=== PATIENT | female | born 1990 | race Caucasian/White ===

== ENCOUNTER 2021-03-30 03:37 | Emergency (ER) | payer OTHER ==
[~2021-03-30] VITALS: Ht 154.9 cm; Wt 57.7 kg
[2021-03-30 03:56] VITALS: BP 114/70
[2021-03-30 04:09] LABS: BILIRUBIN,URINE NEGATIVE (NEG); CLARITY,URINE CLEAR; COLOR,URINE YELLOW; NITRITE,URINE NEGATIVE (NEG); PH,URINE 5.5 (<5.0-8.0); PROTEIN,URINE NEGATIVE (NEG-TRACE); UROBILINOGEN,URINE 0.2 mg/dL (0.2 mg/dL)
[2021-03-30] MEDS ORDERED: IV NORMAL SALINE 1000ML BAG 1,000 ML IV ONE (04:15)
[2021-03-30] MEDS ORDERED: KETOROLAC 15 MG/ML VIAL. IVP ONE (04:15)
[2021-03-30] MEDS ORDERED: METOCLOPRAMIDE HCL 10 MG/2 ML VIAL. IVP ONE (04:15)
--- NOTE | 2021-03-30 04:20 | PHYS DOC ---
Past Medical History Past Medical History: Anxiety Additional Past Medical Histor: SEASONAL ALLERGIES Past Surgical History: No Surgical History Smoking Status: Never Smoker Alcohol Use: Occasionally Drug Use: Marijuana General Adult EDM: Chief Complaint: FLANK PAIN HPI: HPI: Patient is a 30-year-old female presents with report of intermittent flank pain bilaterally with associated nausea that has been ongoing for the past month. Patient reports today became worse primarily to the right flank. Patient reports pain waxes and wanes in intensity. Patient also reports upon urination she noticed her urine was "foul-smelling ". Patient reports had been seen previously by her PCP who obtained blood work as well as an ultrasound of her gallbladder and kidney. Patient reports the ultrasound did not show any significant abnormality with exception for a cyst on her kidney. Patient denies . Reports she is about to start her menstrual cycle. Patient also reports recent fever and chills this evening. Patient does report taking ibuprofen at 1930 last night. Review of Systems: Review of Systems: Constitutional: Reports subjective fever and chills Eyes: Denies redness or eye pain HENT: Denies nasal congestion or sore throat Respiratory: Denies cough or shortness of breath Cardiovascular: Denies chest pain or palpitations GI: Reports abdominal pain and nausea; denies vomiting or diarrhea : Denies dysuria or hematuria Musculoskeletal: Denies joint pain; reports flank pain Integument: Denies rash or skin lesions Neurologic: Denies headache, focal weakness or sensory changes Complete systems were reviewed and found to be within normal limits, except as documented in this note. Heart Score: C/O Chest Pain: N/A Current Medications: Current Medications Medications (Trade) Dose Ordered Sig/Arturo Start Time Stop Time Status Last Admin Dose Admin Ketorolac Tromethamine (Toradol 15mg Vial) 15 mg 1X ONCE 03/30/21 04:15 03/30/21 04:16 Metoclopramide HCl (Reglan Vial) 10 mg 1X ONCE 03/30/21 04:15 03/30/21 04:16 Sodium Chloride 1,000 ml @ 1,000 mls/hr 1X ONCE 03/30/21 04:15 03/30/21 05:14 Allergies: Allergies: Allergies Coded Allergies Type Severity Reaction Last Updated Verified No Known Drug Allergies 03/30/21 No Physical Exam: PE: Constitutional: Well developed, well nourished, no acute distress, non-toxic appearance HENT: Normocephalic, atraumatic Eyes: Conjunctiva normal, no discharge Neck: Normal range of motion, supple Lungs & Thorax: No respiratory distress, equal chest rise and fall Abdomen: Soft, no tenderness, no guarding/rebound tenderness/distention Skin: Warm, dry, no erythema, no rash Back: No tenderness, right CVA tenderness Extremities: No tenderness, ROM intact, no edema Neurologic: Alert and oriented X 3, no focal deficits noted Psychologic: Affect normal, judgment normal Current Patient Data: Labs: Laboratory Tests Test 03/30/21 03:46 POC Urine HCG, Qualitative Hcg negative (Negative) Vital Signs: Vital Signs Date Time Temp Pulse Resp B/P (MAP) Pulse Ox O2 Delivery O2 Flow Rate FiO2 03/30/21 03:56 98.0 84 16 114/70 (85) 100 Room Air 98.0 EKG: EKG: [] Radiology/Procedures: Radiology/Procedures: PROCEDURE: CT ABDOMEN PELVIS WO CONTRAST EXAM: CT Abdomen and Pelvis without IV contrast CLINICAL HISTORY: left flank pain eval for kidney stone COMPARISON: none TECHNIQUE: Helical CT of the abdomen and pelvis without intravenous contrast. Axial, coronal and sagittal reformatted images were generated. PQRS compliance statement - One or more of the following individualized dose reduction techniques were utilized for this study: 1. Automated exposure control 2. Adjustment of the mA and/or kV according to patient size 3. Use of iterative reconstruction technique FINDINGS: Lack of intravenous contrast limits evaluation of solid organs, vasculature, and lymph nodes. Lower chest: Lung bases are clear. Abdomen and Pelvis: Liver, gallbladder, spleen, adrenal glands and pancreas are unremarkable. Right interpolar renal cyst.. No hydronephrosis or hydroureter. No renal tract calculus. Bladder is grossly unremarkable. Moderate to large volume colonic stool content is seen. No bowel obstruction. No abnormal small or large bowel dilatation. Small volume pelvic ascites may be reactive or physiologic. Appendix is not convincingly seen although no definite pericecal inflammatory changes are identified. Bones: No aggressive osseous lesion. IMPRESSION: 1. Moderate to large volume colonic stool content can be correlated for possible constipation. No bowel obstruction. 2. No renal tract calculus. 3. Trace pelvic ascites may be physiologic for this patient. Electronically signed by: Jovanni Briggs MD (03/30/2021 4:40 AM) UIANDERSON Course & Med Decision Making: Course & Med Decision Making Pertinent Labs and Imaging studies reviewed. (See chart for details) Patient presents with report of several week history of intermittent flank pain, nausea, and subjective fever/chills. Tonight notes some malodorous urine. Patient reports had been seen approximately 1 month ago by her PCP for same. Denies history of CT imaging. Symptomatic treatment provided. IV fluid hydration given. Labs obtained and posted to chart. UA without signs of infection. Mild elevation in bilirubin noted, otherwise labs unremarkable. CT abdomen/pelvis without signs of obstructing uropathy. Moderate colonic stool burden noted consistent for constipation. Patient stable for discharge with outpatient follow-up with PCP. Discussed findings and plan with patient, who acknowledges understanding and agreement. Mehreen Disclaimer: Mehreen Disclaimer: This electronic medical record was generated, in whole or in part, using a voice recognition dictation system. Departure Departure Impression: Primary Impression: Flank pain Additional Impressions: Constipation Qualified Codes: K59.00 - Constipation, unspecified Hyperbilirubinemia Disposition: HOME / SELF CARE / HOMELESS Condition: STABLE Patient Instructions: Bilirubin, Constipation, Adult, [id number], Flank Pain, [id number] Additional Instructions: Increase fluid hydration. Follow closely with your doctor regarding elevated bilirubin (today's value 1.9) Scripts Magnesium Citrate (MAGNESIUM CITRATE) 296 Ml Solution 296 ML PO ONCE for Constipation, #296 ML Prov: JP ROTH DO 03/30/21 Ondansetron (ONDANSETRON ODT) 4 Mg Tab.rapdis 1 TAB PO PRN Q6-8HRS PRN for NAUSEA, #16 TAB Prov: JP ROTH DO 03/30/21 JP ROTH DO Mar 30, 2021 04:20
[2021-03-30 04:25] LABS: BASO % 1 % (0-3); EOS # 0.1 x10^3/uL (0.0-0.7); EOS % 1 % (0-3); HEMATOCRIT 39.5 % (36.0-47.0); HEMOGLOBIN 13.9 g/dL (12.0-15.5); LYMPH # 2.2 x10^3/uL (1.0-4.8); LYMPH % 42 % (24-48); MEAN CORPUSCULAR HEMOGLOBIN 31 pg (25-35); MEAN CORPUSCULAR HGB CONC 35 g/dL (31-37); MEAN CORPUSCULAR VOLUME 89 fL (79-100); MONO # 0.5 x10^3/uL (0.0-1.1); MONO % 9 % (0-9); NEUT # 2.4 x10^3/uL (1.8-7.7); NEUT % 47 % (31-73); PLATELET COUNT 188 x10^3/uL (140-400); RED BLOOD COUNT 4.45 x10^6/uL (3.50-5.40); RED CELL DISTRIBUTION WIDTH 12.1 % (11.5-14.5); WHITE BLOOD COUNT 5.2 x10^3/uL (4.0-11.0)
[2021-03-30 04:29] LABS: BACTERIA,URINE MODERATE /HPF (0-FEW); RBC,URINE OCC /HPF (0-2)
[2021-03-30 04:40] LABS: CALCIUM 8.9 mg/dL (8.5-10.1); CREATININE 0.9 mg/dL (0.6-1.0); POTASSIUM 3.5 mmol/L (3.5-5.1)
--- NOTE | 2021-03-30 04:42 | RAD ---
EXAM: CT Abdomen and Pelvis without IV contrast CLINICAL HISTORY: left flank pain eval for kidney stone COMPARISON: none TECHNIQUE: Helical CT of the abdomen and pelvis without intravenous contrast. Axial, coronal and sagi ttal reformatted images were generated. PQRS compliance statement - One or more of the following individualized dose reduction techniques wer e utilized for this study: 1. Automated exposure control 2. Adjustment of the mA and/or kV according to patient size 3. Use of iterative reconstruction technique FINDINGS: Lack of intravenous contrast limits evaluation of solid organs, vasculature, and lymph nodes. Lower chest: Lung bases are clear. Abdomen and Pelvis: Liver, gallbladder, spleen, adrenal glands and pancreas are unremarkable. Right interpolar renal cyst .. No hydronephrosis or hydroureter. No renal tract calculus. Bladder is grossly unremarkable. Modera te to large volume colonic stool content is seen. No bowel obstruction. No abnormal small or large janice wel dilatation. Small volume pelvic ascites may be reactive or physiologic. Appendix is not convincin gly seen although no definite pericecal inflammatory changes are identified. Bones: No aggressive osseous lesion. IMPRESSION: 1. Moderate to large volume colonic stool content can be correlated for possible constipation. No janice wel obstruction. 2. No renal tract calculus. 3. Trace pelvic ascites may be physiologic for this patient. Electronically signed by: Jovnani Briggs MD (03/30/2021 4:40 AM) DANIELA
[2021-03-30 04:45] LABS: ALBUMIN 4.4 g/dL (3.4-5.0); ALBUMIN/GLOBULIN RATIO 1.4 (1.0-1.7); MAGNESIUM 2.2 mg/dL (1.8-2.4); TOTAL BILIRUBIN 1.9 mg/dL (0.2-1.0); TOTAL PROTEIN 7.5 g/dL (6.4-8.2)
[2021-03-30] MEDS ORDERED: ONDA4TAB12 PO (05:07)
[2021-03-30] MEDS ORDERED: MAGN296S68 PO (05:07)
== END 2021-03-30 05:18 | disposition home or self-care (01) ==
LOC: ER 03:37
DX: K59.00 Constipation, unspecified (principal); E80.6 Other disorders of bilirubin metabolism
CPT/HCPCS: 36415; 74176; 80053; 81001; 81025; 83605; 83690; 83735; 85025; 87086; 96361; 96374; 99284; J2765; J7030